=== PATIENT | male | born 1975 | race Hispanic/Latino ===

== ENCOUNTER 2016-09-28 22:11 | Emergency (ER) | payer MEDICAID ==
[2016-09-28 22:25] VITALS: BP 128/68; PULSE 72; RESP 18; TEMP 98.1; O2SAT 98
--- NOTE | 2016-09-29 00:01 | ED PDOC ---
HPI: CCC, URI, Sore Throat Time Seen by Provider: 09/28/16 23:28 Chief Complaint (Nursing): Back Pain Chief Complaint (Provider): back pain History Per: Patient History/Exam Limitations: no limitations Have you had recent travel within the past 21 days to any of the following countries: [place], [place], [place] or [place]?: No Onset/Duration Of Symptoms: Days (4) Associated Symptoms: Cough, Sputum Past Medical History Reviewed: Historical Data, Nursing Documentation, Vital Signs Vital Signs: Last Vital Signs Temp 98.1 F 09/28/16 22:22 Pulse 72 09/28/16 22:22 Resp 18 09/28/16 22:22 BP 128/68 09/28/16 22:22 Pulse Ox 98 09/29/16 01:36 - Medical History PMH: Fractures, Hepatitis (C), Schizophrenia, Seizures Denies: Diabetes, HIV, HTN, Chronic Kidney Disease, Sexually Transmitted Disease - Family History Family History: States: Unknown Family Hx - Home Medications Home Medications: Ambulatory Orders Medication Instructions Recorded Azithromycin [Zithromax] 250 mg PO DAILY #6 tab 09/29/16 - Allergies Allergies/Adverse Reactions: Allergies Allergy/AdvReac Type Severity Reaction Status Date / Time No Known Allergies Allergy Verified 05/14/16 19:33 Review of Systems ROS Statement: Except As Marked, All Systems Reviewed And Found Negative Constitutional: Positive for: Fever Gastrointestinal: Negative for: Nausea, Vomiting Physical Exam - Reviewed Nursing Documentation Reviewed: Yes Vital Signs Reviewed: Yes - Physical Exam Appears: Positive for: Well, Non-toxic, No Acute Distress Skin: Positive for: Normal Color, Warm Cardiovascular/Chest: Positive for: Regular Rate, Rhythm Respiratory: Positive for: Wheezing. Negative for: Decreased Breath Sounds Gastrointestinal/Abdominal: Positive for: Normal Exam, Bowel Sounds, Soft Neurologic/Psych: Positive for: Alert, Oriented - ECG O2 Sat by Pulse Oximetry: 98 - Radiology X-Ray: Interpreted by Me (SEAN) Medical Decision Making Medical Decision Making: dx: PNA tx: Rx z-pack advised to f.u with pmd stable VS and nontoxic appearing., Disposition - Clinical Impression Clinical Impression: Pneumonia - Patient ED Disposition Is Patient to be Admitted: No Counseled Patient/Family Regarding: Diagnosis, Need For Followup, Rx Given - Disposition Disposition: Routine/Home Disposition Time: 01:42 Condition: STABLE Prescriptions: Azithromycin [Zithromax] 250 mg PO DAILY #6 tab Forms: [facility] ED School/Work Excuse
--- NOTE | 2016-09-29 08:28 | RAD ---
HISTORY: CP COMPARISON: 05/25/2016 TECHNIQUE: Chest PA and lateral FINDINGS: LUNGS: There is evidence of some hazy infiltrate in the left lower lung field which appears to be associated with left-sided pleural thickening along the left sada thorax. This is a nonspecific finding and may reflect infectious infiltrate. This however will require further clinical follow-up until resolution. No right lung infiltrates are seen. Mild interstitial change and scarring is seen in the perihilar regions. PLEURA: Nonspecific mild left sada thorax pleural thickening. CARDIOVASCULAR: Heart is normal in size. No CHF is seen. Left and right hilar regions appear normal in size. OSSEOUS STRUCTURES: No appreciable rib fracture associated with the left-sided pleural thickening. VISUALIZED UPPER ABDOMEN: Normal. OTHER FINDINGS: Trachea is midline. Aorta is normal in size. IMPRESSION: Left lower lobe infiltrate with associated left pleural thickening. This would more than likely represent infectious infiltrate and/or other inflammatory process. This will require further clinical follow-up until resolution. No preliminary report is provided by the emergency room staff. Therefore this will be placed into a Physician diver assistant review folder. Critical result folder has also been placed.
== END 2016-09-29 01:54 | disposition home or self-care (01) ==
LOC: H.ER 22:11
DX: J18.9 Pneumonia, unspecified organism (principal); R07.9 Chest pain, unspecified; R91.8 Other nonspecific abnormal finding of lung field; B18.2 Chronic viral hepatitis C

== ENCOUNTER 2016-12-19 04:48 | Inpatient (IN) | payer MEDICAID ==
[2016-12-19 06:16] LABS: BASO % 0.3 % (0.0-2.0); EOS # 0.3 K/uL (0.0-0.7); EOS % 2.5 % (0.0-4.0); HEMOGLOBIN 15.2 g/dL (12.0-18.0); LYMPH # 3.9 K/uL (1.0-4.3); LYMPH % 30.9 % (20.0-40.0); MEAN CELL VOLUME 88.6 fl (80.0-94.0); MEAN CORPUSCULAR HGB CONC 32.8 g/dL (33.0-37.0); MEAN PLATELET VOLUME 9.4 fl (7.2-11.7); MONO # 0.9 K/uL (0.0-0.8); MONO % 7.1 % (0.0-10.0); NEUT # 7.4 K/uL (1.8-7.0); NEUT % 59.2 % (50.0-75.0); NRBC % 0.1 % (0.0-0.0); RBC 5.22 Mil/uL (4.40-5.90); RED CELL DISTRIBUTION WIDTH 13.8 % (11.5-14.5); WHITE BLOOD COUNT 12.5 K/uL (4.8-10.8)
[2016-12-19 06:36] LABS: SQUAMOUS EPITHIAL < 1 /hpf (0-5); URINE BACTERIA RARE (<OCC); URINE BILIRUBIN NEGATIVE (NEGATIVE); URINE BLOOD NEGATIVE (NEGATIVE); URINE CLARITY SLIGHTY-CLOUDY (Clear); URINE COLOR YELLOW (YELLOW); URINE GLUCOSE (UA) NEG (Normal); URINE HYALINE CAST 0-2 /hpf (0-2); URINE LEUKOCYTE ESTERASE NEG Leu/uL (Negative); URINE NITRATE NEGATIVE (NEGATIVE); URINE PROTEIN 30 mg/dL (NEGATIVE); URINE UROBILINOGEN 0.2-1.0 mg/dL (0.2-1.0)
--- NOTE | 2016-12-19 07:02 | ED PDOC ---
- Laboratory Results Result Diagrams: 12/19/16 05:45 12/19/16 05:45 Medical Decision Making Medical Decision Making: patient endorsed to me by Dr. Jack. Patient pending medical clearance and then crisis evaluation. patient became acutely agitated, aggressive and verbally and physically threatening to staff. Sedation ordered. 3.00 - labs, EKG, and chest -xray normal - patient is medically cleared/ Disposition - Clinical Impression Clinical Impression: Paranoia (psychosis) - POA Present On Arrival: None - Disposition Disposition: Transfer of Care Disposition Time: 16:32 Condition: GUARDED Patient Signed Over To: Rd North ED OBSERVATION Date of observation admission: 12/19/16 Time of observation admission: 09:10 - Progress Note Progress Note: 12/19/16 16:26 patient continues to be calm. No distress. 12/19/16 16:26 pending [facility] [place]. Will endorse to Dr. North
[2016-12-19 07:20] VITALS: BMI 22.8
[2016-12-19 10:18] LABS: BLOOD UREA NITROGEN 19 mg/dl (9-20); GFR AFRICAN-AMERICAN > 60; GFR NON-AFRICAN AMERICAN > 60
[2016-12-19 10:19] LABS: ALB/GLOB RATIO 1.4 (1.0-2.1); ALBUMIN 4.1 g/dL (3.5-5.0); ALT/SGPT 27 U/L (21-72); AST/SGOT 29 U/L (17-59); BARBITURATES, UR NEGATIVE (NEGATIVE); BENZODIAZEPINES, UR NEGATIVE (NEGATIVE); CALCIUM 9.3 mg/dL (8.4-10.2)
[2016-12-19 10:20] LABS: OPIATES, UR NEGATIVE (NEGATIVE); PHENCYCLIDINE, UR NEGATIVE (NEGATIVE)
--- NOTE | 2016-12-19 15:35 | RAD ---
PROCEDURE: CHEST RADIOGRAPH, 1 VIEW HISTORY: ER ORDER COMPARISON: Comparison chest 09/29/2016 FINDINGS: LUNGS: Poor inspiration with low lung volumes, mild crowded bronchovascular markings and mild bibasilar left greater than right, rule out mild left basilar scarring PLEURA: No pneumothorax or pleural fluid seen. CARDIOVASCULAR: Heart appears mildly enlarged. Spots OSSEOUS STRUCTURES: No significant abnormalities. VISUALIZED UPPER ABDOMEN: Normal. OTHER FINDINGS: None. IMPRESSION: Poor inspiration with low lung volumes, mild crowded bronchovascular markings and mild bibasilar atelectasis left greater than right. Rule out mild left basilar scarring
--- NOTE | 2016-12-19 16:38 | ED PDOC ---
- Laboratory Results Result Diagrams: 12/19/16 05:45 12/19/16 05:45 - ECG O2 Sat by Pulse Oximetry: 98 (RA) Pulse Ox Interpretation: Normal Medical Decision Making Medical Decision Making: Time: 17:00 --Patient transferred from Dr. Jiang to il. --Pending crisis screening for [facility] admission. Scribe Attestation: Documented by Naina Stephenson, acting as a scribe for Rd North MD. Provider Scribe Attestation: All medical record entries made by the Scribe were at my direction and personally dictated by me. I have reviewed the chart and agree that the record accurately reflects my personal performance of the history, physical exam, medical decision making, and the department course for this patient. I have also personally directed, reviewed, and agree with the discharge instructions and disposition. Disposition - Clinical Impression Clinical Impression: Paranoia (psychosis) - POA Present On Arrival: None - Disposition Disposition: Transfer of Care Disposition Time: 19:00 Condition: GUARDED Patient Signed Over To: Ivania Virk
--- NOTE | 2016-12-19 19:06 | ED PDOC ---
- Laboratory Results Result Diagrams: 12/19/16 05:45 12/19/16 05:45 - ECG O2 Sat by Pulse Oximetry: 98 (RA) Pulse Ox Interpretation: Normal Medical Decision Making Medical Decision Making: Time: 19:00 --Patient transferred from Dr. North to nd. --Pending crisis screening for [facility] admission. Scribe Attestation: Documented by Luanne Rosario, acting as a scribe for Ivania Virk MD. Provider Scribe Attestation: All medical record entries made by the Scribe were at my direction and personally dictated by me. I have reviewed the chart and agree that the record accurately reflects my personal performance of the history, physical exam, medical decision making, and the department course for this patient. I have also personally directed, reviewed, and agree with the discharge instructions and disposition. Time: 0700 Initial plan: 0700: Patient signed out to Dr. Torres at this time. Pending bed assignment at [facility]. Scribe Attestation: Documented by Lay Yanez, acting as a scribe for Ivania Virk MD. Scribe Attestation: All medical record entries made by the Scribe were at my direction and personally dictated by me. I have reviewed the chart and agree that the record accurately reflects my personal performance of the history, physical exam, medical decision making, and the department course for this patient. I have also personally directed, reviewed, and agree with the discharge instructions and disposition. Disposition Counseled Patient/Family Regarding: Studies Performed, Diagnosis - Clinical Impression Clinical Impression: Paranoia (psychosis) - POA Present On Arrival: None - Disposition Disposition: Transfer of Care Disposition Time: 07:00 Condition: STABLE Patient Signed Over To: Ford Torres
--- NOTE | 2016-12-20 07:22 | ED PDOC ---
- Laboratory Results Result Diagrams: 12/19/16 05:45 12/19/16 05:45 - ECG O2 Sat by Pulse Oximetry: 98 (RA) Pulse Ox Interpretation: Normal - Progress ED Course And Treament: 1446: Stable. S/O Dr. Harris. Pending [facility] transfer. Medical Decision Making Medical Decision Makin:00 Patient was signed out to me by Ivania Virk MD pending [facility] transfer Scribe Attestation: Documented by Shobha Pardo, acting as a scribe for Ford Torres MD. Provider Scribe Attestation: All medical record entries made by the Scribe were at my direction and personally dictated by me. I have reviewed the chart and agree that the record accurately reflects my personal performance of the history, physical exam, medical decision making, and the department course for this patient. I have also personally directed, reviewed, and agree with the discharge instructions and disposition. Disposition - Clinical Impression Clinical Impression: Paranoia (psychosis) - POA Present On Arrival: None - Disposition Disposition: Transfer of Care Disposition Time: 14:46 Condition: FAIR Patient Signed Over To: Jordan Harris III
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
[2016-12-20] MEDS: SOFOSBUVIR PO SCH (14:18)
[2016-12-20] MEDS: LEDIPASVIR PO SCH (14:18)
--- NOTE | 2016-12-21 00:23 | ED PDOC ---
- Laboratory Results Result Diagrams: 12/19/16 05:45 12/19/16 05:45 - ECG O2 Sat by Pulse Oximetry: 98 (RA) Medical Decision Making Medical Decision Making: pt was endorsed from Dr Torres pending bed availaility at [facility] [place] [place]. Remained calm over course of shift. Psychiatry note from Dr Pearson reviewed. Disposition - Clinical Impression Clinical Impression: Paranoia (psychosis) - POA Present On Arrival: None - Disposition Disposition: Transfer of Care Disposition Time: 23:50 Condition: STABLE Patient Signed Over To: Ivania Virk Handoff Comments: pending bed at [facility] [place].
--- NOTE | 2016-12-21 00:27 | ED PDOC ---
- Laboratory Results Result Diagrams: 12/19/16 05:45 12/19/16 05:45 - ECG O2 Sat by Pulse Oximetry: 98 (RA) Pulse Ox Interpretation: Normal <Ivania Virk - Last Filed: 12/21/16 06:56> - Laboratory Results Result Diagrams: 12/19/16 05:45 12/19/16 05:45 <Jarret Nguyen Jr. - Last Filed: 12/21/16 15:06> Medical Decision Making <Ivania Virk - Last Filed: 12/21/16 06:56> <Jarret Nguyen Jr. - Last Filed: 12/21/16 15:06> Medical Decision Making: Patient signed out to provider from Dr. Harris at 2300 pending bed assignment at [facility] Scribe Attestation Documented by Teresa Knapp acting as a scribe for Ivania Virk MD. Provider Attestation All medical record entries made by the Scribe were at my direction and personally dictated by me. I have reviewed the chart and agree that the record accurately reflects my personal performance of the history, physical exam, medical decision making, and the department course for this patient. I have also personally directed, reviewed, and agree with the discharge instructions and disposition. (Ivania Virk) Disposition - POA Present On Arrival: None - Disposition Disposition: Transfer of Care Disposition Time: 07:00 <Ivania Virk - Last Filed: 12/21/16 06:56> <Jarret Nguyen Jr. - Last Filed: 12/21/16 15:06> - Clinical Impression Clinical Impression: Paranoia (psychosis) - Disposition Condition: STABLE Progress Note <Ivania Virk - Last Filed: 12/21/16 06:56> <Jarret Nguyen Jr. - Last Filed: 12/21/16 15:06> - Review of Symptoms Events since last encounter: Pt s/o to me by overnight attending physician. Pt w/ psychosis and has been accepted for involuntary admission at [facility]. Pt w/ no new complaints. Pt awaiting a bed at [facility]. Pt signed out to Dr. Diandra Jiang at 3:00 PM. (Jarret Nguyen Jr.) Physician Patient Turnover - . Patient Signed Over To: Diandra Jiang Handoff Comments: Await bed availability at [facility] for involunatary psych admission <Jarret Nguyen Jr. - Last Filed: 12/21/16 15:06>
[2016-12-21] MEDS: LEDIPASVIR PO SCH (09:23)
[2016-12-21] MEDS: SOFOSBUVIR PO SCH (09:23)
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
--- NOTE | 2016-12-21 15:26 | ED PDOC ---
- Laboratory Results Result Diagrams: 12/19/16 05:45 12/19/16 05:45 - ECG O2 Sat by Pulse Oximetry: 96 Medical Decision Making Medical Decision Making: received patient from Dr. Nguyen. patient has been admitted to [facility] but has been awaiting a bed to transfer into. Will continue to monitor and intervene as needed. Disposition Doctor Will See Patient In The: Office - Clinical Impression Clinical Impression: Paranoia (psychosis) - POA Present On Arrival: None - Disposition Disposition: Other Institution Disposition Time: 23:26 Condition: STABLE Patient Signed Over To: Abelino Escalante
--- NOTE | 2016-12-22 00:15 | ED PDOC ---
- Laboratory Results Result Diagrams: 12/19/16 05:45 12/19/16 05:45 - ECG O2 Sat by Pulse Oximetry: 96 (RA) Pulse Ox Interpretation: Normal Medical Decision Making Medical Decision Making: Time: 0000 Initial plan: --Patient signed out to me by Dr. Jiang. Pending bed availability at [facility]. --ED-Observation 0700: Giving Sign Out: --Patient signed out to Dr. North at this time. Pending bed availability at [facility]. Scribe Attestation: Documented by Lay Yanez, acting as a scribe for Abelino Escalante MD. Scribe Attestation: All medical record entries made by the Scribe were at my direction and personally dictated by me. I have reviewed the chart and agree that the record accurately reflects my personal performance of the history, physical exam, medical decision making, and the department course for this patient. I have also personally directed, reviewed, and agree with the discharge instructions and disposition. Disposition - Clinical Impression Clinical Impression: Paranoia (psychosis) - POA Present On Arrival: None - Disposition Disposition: Transfer of Care Disposition Time: 07:00 Condition: STABLE ED OBSERVATION Date of observation admission: 12/22/16 Time of observation admission: 00:00 - Observation admission statement Patient is being placed in observation because:: --Continue Monitoring and Intervening if needed. --Pending bed availability at [facility]. - Goals of Observation Goals of observation are:: Continue Monitoring and Intervening if needed. - Progress Note Progress Note: 12/22/16 01:30 --Continue Monitoring and Intervening if needed. --Pending bed availability at [facility]. 12/22/16 03:00 --Continue Monitoring and Intervening if needed. --Pending bed availability at [facility]. 12/22/16 04:30 --Continue Monitoring and Intervening if needed. --Pending bed availability at [facility]. 12/22/16 06:00 --Continue Monitoring and Intervening if needed. --Pending bed availability at [facility].
--- NOTE | 2016-12-22 07:07 | ED PDOC ---
- Laboratory Results Result Diagrams: 12/19/16 05:45 12/19/16 05:45 - ECG O2 Sat by Pulse Oximetry: 96 (RA) Disposition - Clinical Impression Clinical Impression: Paranoia (psychosis) - POA Present On Arrival: None - Disposition Disposition: Transfer of Care Disposition Time: 15:00 Condition: STABLE Patient Signed Over To: Ivania Virk
[2016-12-22] MEDS: LEDIPASVIR PO SCH (09:01)
[2016-12-22] MEDS: SOFOSBUVIR PO SCH (09:01)
--- NOTE | 2016-12-22 19:51 | ED PDOC ---
- Laboratory Results Result Diagrams: 12/19/16 05:45 12/19/16 05:45 - ECG O2 Sat by Pulse Oximetry: 96 (RA) Pulse Ox Interpretation: Normal Medical Decision Making Medical Decision Making: Patient signed out to provider at 1900 pending bed placement at [facility]. 700: Pt. signed out to Dr. Scott pending bed availability at [facility]. Scribe Attestation Documented by Tersea Knapp acting as a scribe for Abelino Escalante MD. Provider Attestation All medical record entries made by the Scribe were at my direction and personally dictated by me. I have reviewed the chart and agree that the record accurately reflects my personal performance of the history, physical exam, medical decision making, and the department course for this patient. I have also personally directed, reviewed, and agree with the discharge instructions and disposition. Disposition - Clinical Impression Clinical Impression: Paranoia (psychosis) - POA Present On Arrival: None - Disposition Disposition: Transfer of Care Disposition Time: 07:00 Condition: STABLE Patient Signed Over To: Benjamin Scott Handoff Comments: pending bed availability at [facility]
[2016-12-23] MEDS: SOFOSBUVIR PO SCH (09:39)
[2016-12-23] MEDS: LEDIPASVIR PO SCH (09:39)
--- NOTE | 2016-12-23 09:54 | ED PDOC ---
- Laboratory Results Result Diagrams: 12/19/16 05:45 12/19/16 05:45 - ECG O2 Sat by Pulse Oximetry: 97 Medical Decision Making Medical Decision Making: Pt calm, cooperative, agreeable to voluntary admission to [facility] Disposition - Clinical Impression Clinical Impression: Paranoia (psychosis) - POA Present On Arrival: None - Disposition Disposition: Admitted as In-Patient Disposition Time: 09:54 Condition: STABLE
[2016-12-23 15:34] VITALS: O2SAT 98
[2016-12-23] MEDS ORDERED: Alum-Mag Hydrox-Simethicone Susp (30 mL) PO PRN (18:27)
[2016-12-23] MEDS ORDERED: Magnesium Hydroxide Susp 30 ml UD PO PRN (18:27)
[2016-12-23] MEDS ORDERED: DiphenhydrAMINE 50 mg/ml Inj IM PRN (18:27)
[2016-12-24 07:32] LABS: BASO # 0.1 K/uL (0.0-0.2); BASO % 1.2 % (0.0-2.0); EOS # 0.4 K/uL (0.0-0.7); EOS % 3.8 % (0.0-4.0); HEMOGLOBIN 16.2 g/dL (12.0-18.0); LYMPH # 3.4 K/uL (1.0-4.3); LYMPH % 30.8 % (20.0-40.0); MEAN CELL VOLUME 87.6 fl (80.0-94.0); MEAN CORPUSCULAR HEMOGLOBIN 29.5 pg (27.0-31.0); MEAN CORPUSCULAR HGB CONC 33.6 g/dL (33.0-37.0); MEAN PLATELET VOLUME 9.6 fl (7.2-11.7); MONO # 0.7 K/uL (0.0-0.8); MONO % 6.6 % (0.0-10.0); NEUT # 6.3 K/uL (1.8-7.0); NEUT % 57.6 % (50.0-75.0); RBC 5.49 Mil/uL (4.40-5.90); RED CELL DISTRIBUTION WIDTH 13.6 % (11.5-14.5); WHITE BLOOD COUNT 10.9 K/uL (4.8-10.8)
[2016-12-24 07:46] LABS: ALB/GLOB RATIO 1.4 (1.0-2.1); ALBUMIN 4.4 g/dL (3.5-5.0); ALT/SGPT 44 U/L (21-72); AST/SGOT 23 U/L (17-59); BLOOD UREA NITROGEN 18 mg/dl (9-20); CALCIUM 9.4 mg/dL (8.4-10.2); GFR AFRICAN-AMERICAN > 60; GFR NON-AFRICAN AMERICAN > 60; HDL CHOLESTEROL 33 MG/DL (30-70)
[2016-12-24 07:57] LABS: LDL CHOLESTEROL 88 mg/dL (0-129)
[2016-12-24 08:01] LABS: T4 7.89 ug/dl (5.5-11.0)
[2016-12-24] MEDS: LEDIPASVIR PO SCH (10:11)
[2016-12-24] MEDS: SOFOSBUVIR PO SCH (10:11)
[2016-12-24] MEDS ORDERED: Divalproex 500 mg DR(BID formulation) PO SCH (14:15)
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
[2016-12-24] MEDS ORDERED: OLANZapine 5 mg Disintegrating Tab PO SCH (14:30)
[2016-12-24] MEDS: OLANZapine 10 mg Disintegrating Tab PO SCH (15:21)
--- NOTE | 2016-12-24 20:59 | CP.PCM.CON ---
History of Present Illness - History of Present Illness History of Present Illness: 41 yo male admitted in psyche unit because of aggressive behaviour. Review of Systems - Review of Systems All systems: reviewed and no additional remarkable complaints except (aside from those mentioned above, 12 point system review were negative by me) Past Patient History - Tetanus Immunizations Tetanus Immunization: Unknown - Past Medical History & Family History Past Family History: Reviewed and not pertinent - Past Social History Smoking Status: Former Smoker Alcohol: None - CARDIAC Hx Cardiac Disorders: No - PULMONARY Hx Respiratory Disorders: No Hx Tuberculosis: No - NEUROLOGICAL HX Cerebrovascular Accident: No Hx Seizures: Yes - HEENT Hx HEENT Problems: No - RENAL Hx Chronic Kidney Disease: No - ENDOCRINE/METABOLIC Hx Endocrine Disorders: No - HEMATOLOGICAL/ONCOLOGICAL Hx Cancer: No Hx Human Immunodeficiency Virus (HIV): No - INTEGUMENTARY Hx Dermatological Problems: No - MUSCULOSKELETAL/RHEUMATOLOGICAL Hx Fractures: Yes - GASTROINTESTINAL Hx Gastrointestinal Disorders: No - GENITOURINARY/GYNECOLOGICAL Hx Genitourinary Disorders: No Hx Sexually Transmitted Disorders: No - PSYCHIATRIC Hx Substance Use: No - SURGICAL HISTORY Hx Surgeries: No Other/Comment: COLLAR BONE SURGERY - ANESTHESIA Hx Anesthesia: Yes Meds Allergies/Adverse Reactions: Allergies Allergy/AdvReac Type Severity Reaction Status Date / Time No Known Allergies Allergy Verified 05/14/16 19:33 - Medications Medications: Current Medications Acetaminophen (Tylenol 325mg Tab) 650 mg PO Q4 PRN PRN Reason: pain Al Hydrox/Mg Hydrox/Simethicone (Maalox Plus 30 Ml) 30 ml PO Q4 PRN PRN Reason: Dyspepsia Diphenhydramine HCl (Benadryl) 50 mg IM Q6 PRN PRN Reason: Extrapyramidal S/S Unable PO Diphenhydramine HCl (Benadryl) 50 mg PO HS PRN PRN Reason: Sleep Last Admin: 12/23/16 23:02 Dose: 50 mg Diphenhydramine HCl (Benadryl) 50 mg PO Q6 PRN PRN Reason: dystonic Haloperidol (Haldol) 5 mg PO Q4 PRN PRN Reason: Agitation Haloperidol Lactate (Haldol) 5 mg IM Q4 PRN PRN Reason: Agitation, Unable to Take PO Home Med (Ledipasvir/Sofosbuvir [Harvoni 90-400 Mg Tablet]) 1 tab PO DAILY ALEX Last Admin: 12/24/16 10:11 Dose: 1 tab Lorazepam (Ativan) 2 mg IM Q4 PRN PRN Reason: Anxiety/Agitation,Unable PO Lorazepam (Ativan) 2 mg PO Q4 PRN PRN Reason: Anxiety Last Admin: 12/23/16 23:02 Dose: 2 mg Magnesium Hydroxide (Milk Of Magnesia) 30 ml PO HS PRN PRN Reason: Constipation Olanzapine (Zyprexa Zydis) 10 mg PO DAILY ALEX Last Admin: 12/24/16 15:21 Dose: 10 mg Physical Exam - Constitutional Appears: No Acute Distress - Head Exam Head Exam: ATRAUMATIC - Eye Exam Eye Exam: absent: Scleral icterus - ENT Exam ENT Exam: Mucous Membranes Moist - Neck Exam Neck exam: Negative for: Meningismus - Respiratory Exam Respiratory Exam: absent: Rhonchi, Wheezes, Respiratory Distress - Cardiovascular Exam Cardiovascular Exam: REGULAR RHYTHM, +S1, +S2 - GI/Abdominal Exam GI & Abdominal Exam: Soft. absent: Tenderness - Rectal Exam Rectal Exam: Deferred - Extremities Exam Extremities exam: Negative for: pedal edema - Back Exam Back exam: NORMAL INSPECTION - Neurological Exam Neurological exam: Alert, Oriented x3 - Psychiatric Exam Psychiatric exam: Normal Affect - Skin Skin Exam: Dry, Intact Results - Vital Signs Recent Vital Signs: Last Vital Signs Temp 98.2 F 12/24/16 16:49 Pulse 57 L 12/24/16 16:49 Resp 20 12/24/16 16:49 BP 144/74 12/24/16 16:49 Pulse Ox 98 12/23/16 15:37 - Labs Result Diagrams: 12/24/16 06:30 12/24/16 06:30 Labs: Laboratory Results - last 24 hr 12/24/16 12/24/16 12/24/16 06:30 06:30 06:30 WBC 10.9 H RBC 5.49 Hgb 16.2 Hct 48.1 MCV 87.6 MCH 29.5 MCHC 33.6 RDW 13.6 Plt Count 225 MPV 9.6 Neut % (Auto) 57.6 Lymph % (Auto) 30.8 [place] % (Auto) 6.6 Eos % (Auto) 3.8 Baso % (Auto) 1.2 Neut # 6.3 Lymph # 3.4 [place] # 0.7 Eos # 0.4 Baso # 0.1 Sodium 140 Potassium 4.2 Chloride 102 Carbon Dioxide 29 Anion Gap 13 BUN 18 Creatinine 1.0 Est GFR ( Amer) > 60 Est GFR (Non-Af Amer) > 60 Random Glucose 102 Hemoglobin A1c 6.0 Calcium 9.4 Total Bilirubin 0.5 AST 23 ALT 44 Alkaline Phosphatase 68 Total Protein 7.5 Albumin 4.4 Globulin 3.1 Albumin/Globulin Ratio 1.4 Triglycerides 247 H Cholesterol 169 LDL Cholesterol Direct 88 HDL Cholesterol 33 Thyroxine (T4) 7.89 TSH 3rd Generation 3.16 Assessment & Plan (1) Aggressive behavior Status: Acute Comment: psyche is managing
[2016-12-25 09:08] VITALS: RESP 18
[2016-12-25] MEDS: SOFOSBUVIR PO SCH (09:08)
[2016-12-25] MEDS: OLANZapine 10 mg Disintegrating Tab PO SCH (09:08)
[2016-12-25] MEDS: LEDIPASVIR PO SCH (09:08)
--- NOTE | 2016-12-25 12:54 | PCM.PYCHPN ---
Psychiatric Progress Note - Psychiatric Progress Note Patient seen today, length of contact: discussed with team Patient Chief Complaint: i'm fine Problems Identified/Issues Discussed: pt took his medications today. screened and accepted for transfer to [facility]. he has been calm on the unit. he spends a lot of time on the phone Medical Problems: hep c Medication Change: No Medical Record Reviewed: Yes Mental Status Examination - Cognitive Function Orientation: Person, Place, Situation, Time Memory: Intact Attention: WNL Concentration: WNL Association: WNL Fund of Knowledge: [facility] Decription of patient's judgement and insights: poor - Mood Mood: Depressed, Homicidal Ideation (per chart was threatening in community and er. family has expressed) - Affect Affect: Constricted - Formal Thought Process Formal Thought Process: Delusions (talking about an ongoing war/soldiers coming to his "bomb alf"), Paranoia, Loosening of associations Psychotic Thoughts and Behaviors: pt internally preoccupied - Suicidal Ideation Suicidal Ideation: No - Homicidal Ideation Homicidal Ideation: No Goal/Treatment Plan - Goal/Treatment Plan Need for Continued Stay: Remain at risks for inpatient hospitalization, Severe functional impairment Progress Toward Problem(s) and Goals/Treatment Plan: schizoaffective disorder continue zyprexa pt to be transfered to [facility] when bed available Estimated Date of D/C: 12/25/16
[2016-12-26 09:01] VITALS: BP 139/60; PULSE 54; TEMP 97.7
[2016-12-26] MEDS: OLANZapine 10 mg Disintegrating Tab PO SCH (09:08)
[2016-12-26] MEDS: LEDIPASVIR PO SCH (09:08)
[2016-12-26] MEDS: SOFOSBUVIR PO SCH (09:08)
--- NOTE | 2016-12-26 13:25 | PCM.PYCHPN ---
Psychiatric Progress Note - Psychiatric Progress Note Patient seen today, length of contact: in treatment team Patient Chief Complaint: so, i can go? Problems Identified/Issues Discussed: pt taking meds, but he denies having a mental illness. spends all day on phone and writing in a journal. he is paranoid and with bizarre delusional thoughts expressed when he does talk to team members Medical Problems: hep c Medication Change: No Medical Record Reviewed: Yes Mental Status Examination - Cognitive Function Orientation: Person, Place, Situation, Time Memory: Intact Attention: WNL Concentration: WNL Association: WNL Fund of Knowledge: WN Decription of patient's judgement and insights: poor - Mood Mood: Anxious - Affect Affect: Constricted - Speech Speech: Appropriate - Formal Thought Process Formal Thought Process: Delusions (talking about an ongoing war/soldiers coming to his "bomb intermediate"), Paranoia, Loosening of associations Psychotic Thoughts and Behaviors: pt internally preoccupied - Suicidal Ideation Suicidal Ideation: No - Homicidal Ideation Homicidal Ideation: No Goal/Treatment Plan - Goal/Treatment Plan Need for Continued Stay: Remain at risks for inpatient hospitalization, Severe functional impairment Progress Toward Problem(s) and Goals/Treatment Plan: schizoaffective disorder continue zyprexa pt to be transfered to [facility] when bed available Estimated Date of D/C: 12/25/16
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
== END 2016-12-26 15:20 | DRG 430 ==
LOC: H.ER 04:48 → H.EROBSV 09:19 → UNDOADMOB 11:19 → UNDODISOB 12-20 03:22 → H.ERHOLD 12-23 10:11 → H.PSYCH 12-23 17:21 → OBSVTOIN 12-23 18:38
PROVIDERS: ADMIT Psychiatry & Neurology Psychiatry; ATTEND Psychiatry & Neurology Psychiatry
PROC: GZ51ZZZ Individual Psychotherapy, Behavioral (ICD-10-PCS; principal; 2016-12-23)
DX: F20.0 Paranoid schizophrenia (principal); F25.9 Schizoaffective disorder, unspecified; Z86.19 Personal history of other infectious and parasitic diseases; J06.9 Acute upper respiratory infection, unspecified; Z81.8 Family history of other mental and behavioral disorders; Z87.891 Personal history of nicotine dependence; Z91.19 Patient's noncompliance with other medical treatment and regimen; G40.909 Epilepsy, unspecified, not intractable, without status epilepticus